=== PATIENT | female | born 1975 | race Caucasian/White ===

== ENCOUNTER → 2017-11-22 | Day surgery (SDC) | payer OTHER ==
[~2017-11-22] VITALS: Ht 154.9 cm; Wt 56.9 kg
[~2017-11-22] MED LIST: BUPIVACAINE/EPINEPHRINE 0.25% PF 30 ML VIAL ONE; CHLORHEXIDINE GLUCONATE 2 % 1 PACK (2 CLOTHS) TOPICAL PRN; DEXAMETHASONE SOD PHOS 4 MG/ML VIAL IV ONE; DO NOT ADM ANY ANTICOAGULANT DRUGS PRN; GLYCOPYRROLATE 1 MG/5 ML SYRINGE IV PUSH ONE; KETOROLAC TROMETHAMINE 30 MG/ML (IVP) VIAL IV PUSH ONE; LACTATED RINGER'S 1000 ML INJ 1,000 ML IV ONE; LACTATED RINGER'S 1000 ML IV PRN; METOPROLOL TARTRATE 25 MG TAB PO PRN; NEOSTIGMINE 5 MG/5 ML SYRINGE IV PUSH ONE; ONDANSETRON HCL 4 MG/2 ML VIAL IV PUSH ONE; POVIDONE IODINE 5% (ANTISEPSIS KIT) 4 APPLICATIONS EACH NARE PRN; ROCURONIUM INJ 50 MG/5 ML SYRINGE IV PUSH ONE; SODIUM CHLORID 0.9% 500 ML IV PRN; ceFAZolin 2 GM PREMIX 50 ML IV SCH; ePHEDrine/NS 25 MG/5 ML SYRINGE IV ONE; oxyCODONE/ACETAMINOPHEN 5 MG/325 MG TAB PO ONE
[2017-11-22 12:14] LABS: AUTOMATED NEUTROPHIL # 4.4 TH/MM3 (1.8-7.7); BASOPHIL % 0.6 % (0.0-2.0); EOSINOPHIL # 0.4 TH/MM3 (0-0.4); EOSINOPHIL % 5.2 % (0.0-4.0); HEMOGLOBIN 14.1 GM/DL (11.6-15.3); LYMPH % 32.5 % (9.0-44.0); LYMPHOCYTE # 2.7 TH/MM3 (1.0-4.8); MEAN CELL VOLUME 89.4 FL (80.0-100.0); MEAN CORPUSCULAR HGB CONC 33.5 % (32.0-36.0); MEAN PLATELET VOLUME 8.3 FL (7.0-11.0); MONO % 8.8 % (0.0-8.0); MONOCYTE # 0.7 TH/MM3 (0-0.9); NEUT % 52.9 % (16.0-70.0); PLATELET COUNT 291 TH/MM3 (150-450); RED CELL DISTRIBUTION WIDTH 13.7 % (11.6-17.2); WHITE BLOOD COUNT 8.3 TH/MM3 (4.0-11.0)
[2017-11-22 12:42] LABS: BICARBONATE 21.2 MEQ/L (21.0-32.0); CALCIUM 8.8 MG/DL (8.5-10.1); CREATININE 0.7 MG/DL (0.50-1.00)
--- NOTE | 2017-11-22 14:54 | HHI.PR ---
Immediate Post Op Note Procedure Date: Nov 22, 2017 Pre Op Diagnosis: right inguinal hernia Post Op Diagnosis: same, femoral and direct hernia Surgeon: Zhou Reynoso MD Bakery Deliverer(s): Dr. Quintanilla Procedure: lap inguinal hernia repair with 3x6in mesh Findings: femoral hernia with lipoma, and direct hernia Complications: none Specimen(s) removed: none Estimated blood loss: 5cc Anesthesia: General Drains: None Patient to: PACU Patient Condition: Good Zhou Reynoso MD Nov 22, 2017 14:54
[2017-11-22 16:13] VITALS: BP 111/68; PULSE 79; RESP 20; TEMP 98; O2SAT 96
--- NOTE | 2017-11-23 23:19 | MP ---
cc: TRISH REYNOSO MD DATE OF SURGERY 11/22/2017 PREOPERATIVE DIAGNOSIS Right inguinal hernia. POSTOPERATIVE DIAGNOSIS Right inguinal hernia, femoral hernia, small indirect hernia. SURGEON Dr. Ronald Reynoso ROPING TENDER Dr. Jameson Quintanilla ANESTHESIA GETA IV FLUIDS See anesthesia sheet ESTIMATED BLOOD LOSS 5 mL. DRAINS None COMPLICATIONS None WOUND CLASSIFICATION Clean. FINDINGS Small direct inguinal hernia defect moderate-sized femoral hernia defect with lipoma. SPECIMENS None INDICATION The patient is a 41-year-old female who presents with complaints of a groin bulge. She states very mild pain from this. However, she has noticed significant bulge that continued to increase in size. She was examined in the office with findings of inguinal hernia. Therefore, decision was made for a laparoscopic repair. Discussed with the patient in detail regarding risks, benefits, and alternatives. Discussed with the patient this is not emergent surgery. However, likelihood that the defect would increase over time in size and could consider operative intervention versus continued observation. Did discuss risks of possible recurrence, however, extremely low after mesh placement. The patient stated understanding, agreed and consented for surgical procedure. PROCEDURE IN DETAIL The patient was taken to the operating suite, placed in supine position. She was prepped and draped in usual sterile fashion after induction of general endotracheal anesthesia. Brief time-out done stating correct patient, procedure, surgery site and all were in agreement with this. A small uri incision was made inferior at the umbilicus with an 11-blade after injection of local anesthetic. Hemostat was used to blunt dissect down to the fascia. Fascia was identified. On the right side a small uri was made in the anterior portion of the fascia with 11 blade. This was done to the right of midline. Hemostat was used to widely spread the anterior rectus fascia with identification of the rectus muscle. S retractor was placed and Ernestine clamp was used to dissect through the posterior fascia. Balloon dissector was then placed underneath the rectus muscle and on top of the posterior fascia, inserted toward the pubis. The balloon was then insufflated under direct visualization of the 10-mm scope. There was okay dissection of the preperitoneal space. However, there was still a fair amount of fatty tissue involved that still needed dissection. The fluid was removed and a trocar was then introduced in the preperitoneal space under direct vision. The peritoneal space was insufflated to 11 mm pneumoperitoneum. The balloon ____was then inflated. Two 5 mm trocars were placed lower midline through stab incisions with an 11-blade. Two blunt dissectors were used in order to clearly identify the epigastric vessels that were in the anterior abdominal wall. Lateral portions were dissected bluntly with graspers again noting some subcutaneous fat that was involved and had to be dissected away. Round ligament was also identified. On examination of both the indirect, direct and femoral spaces, there was noted to be a small direct hernia and a somewhat larger femoral hernia with incarcerated lipoma. The lipoma and sac was dissected out of the femoral canal with blunt dissection and harmonic scalpel. Once the hernia sac was reduced into the peritoneal cavity, the pubic symphysis was identified and cleared of all fatty tissues and good identification of structures and adequate ____ zone was obtained. The atrium 6 x 6 mesh was obtained. This was cut approximately in half. The camera was removed and the mesh was rolled and placed into this space. The blunt graspers were used in order to position the mesh in appropriate place. The laparoscopic tacker device was used in order to tack just superior to the pubic tubercle and anteriorly and also out laterally to obtain adequate hernia repair. The mesh was placed in order to cover both the direct and femoral hernia spaces and cover the indirect space, although no hernia was present in this place. Next, the local anesthetic was injected through the port. The preperitoneal space was desufflated. The anterior rectus fascia was closed with [id number] 0 Vicryl. 4-0 Monocryl was used to close the subcuticular layers of all three ports. Sterile dressing was then placed. The patient tolerated the procedure well. There were no intraoperative complication. All lap, drains, instrument counts were correct at the end of the procedure. The patient was extubated, taken stable to PACU. MD GARFIELD Best/ /2:24 PM /10:38 PM [id number]
== END | disposition home or self-care (01) ==
LOC: HSDC 10:41
PROVIDERS: ATTEND Surgery
DX: K40.90 Unilateral inguinal hernia, without obstruction or gangrene, not specified as recurrent (principal); K41.90 Unilateral femoral hernia, without obstruction or gangrene, not specified as recurrent; D17.5 Benign lipomatous neoplasm of intra-abdominal organs; Z01.818 Encounter for other preprocedural examination
CPT/HCPCS: 00840; 49650; 49659; 80048; 85025; C1727; C1781; J0690; J1100; J1885; J2405; J2710; J7120